=== PATIENT | male | born 1980 ===

== ENCOUNTER 2016-07-24 13:41 | Emergency (ER) | payer OTHER ==
--- NOTE | 2016-07-24 16:49 | ED ---
Lower Extremity - HPI Summary HPI Summary: Patient sent here by [facility] after kicked in the right luna by a cow last week. He was not seen at the time because he denied severe pain. He assumed it would just be a bruise. Over this week, the swelling increased and there is noticeable blood pooling under the skin on both medial and lateral right ankle. He denies calf pain. He takes no medications. He is otherwise healthy. He has been walking and working on the leg, but notes to increasing pain, color changes. Denies temperature changes, numbness or tingling. Pulses +2 bilaterally. - History of Current Complaint Chief Complaint: EDExtremityLower Stated Complaint: RT LEG INJURY Time Seen by Provider: 07/24/16 15:34 Hx Obtained From: Patient Mechanism Of Injury: Direct Blow Onset of Pain: Immediate Onset/Duration: Days Severity Initially: Mild Severity Currently: Moderate Pain Intensity: 5 Pain Scale Used: 0-10 Numeric Timing: Constant Location: Is Discrete @ - right lower extremity BTK Character Of Pain: Aching, Throbbing Associated Signs And Symptoms: Positive: Swelling, Redness, Bruising Aggravating Factor(s): Standing, Ambulation, Movement, Weight Bearing, Stairs Alleviating Factor(s): Rest Able to Bear Weight: Yes Related History: Occupational Injury - Risk Factors Gout Risk Factors: Negative, Male DVT Risk Factors: Negative Septic Arthritis Risk Factor: Negative - Allergies/Home Medications Allergies/Adverse Reactions: Allergies Allergy/AdvReac Type Severity Reaction Status Date / Time No Known Allergies Allergy Verified 07/24/16 16:28 PMH/Surg Hx/FS Hx/Imm Hx Previously Healthy: Yes - Immunization History Hx Pertussis Vaccination: No Immunizations Up to Date: No Infectious Disease History: No Infectious Disease History: Denies: Traveled Outside the [place] in Last 30 Days - Social History Occupation: Employed Full-time Lives: With Family Alcohol Use: Occasionally Hx Substance Use: No Substance Use Type: Reports: None Hx Tobacco Use: No Smoking Status (MU): Never Smoked Tobacco Do You Chew or Dip Tobacco: No Review of Systems Constitutional: Negative Eyes: Negative Cardiovascular: Negative Respiratory: Negative Positive: no symptoms reported, see HPI Positive: Arthralgia - medial and lateral ankle pain on palpation, Myalgia Positive: Bruising - hematoma inferior to the right knee anteriorly Neurological: Negative Psychological: Normal All Other Systems Reviewed And Are Negative: Yes Physical Exam Triage Information Reviewed: Yes Vital Signs On Initial Exam: Initial Vitals Temp Pulse Resp BP Pulse Ox 97.7 F 67 18 128/82 97 07/24/16 13:44 07/24/16 13:44 07/24/16 13:44 07/24/16 13:44 07/24/16 13:44 Vital Signs Reviewed: Yes Appearance: Positive: Well-Appearing, Well-Nourished Skin: Positive: Warm, Skin Color Reflects Adequate Perfusion, Other - ecchymosis surrounding lower extremity and medial and lateral ankle of right side. Hematoma located inferior to the right knee Head/Face: Positive: Normal Head/Face Inspection Eyes: Positive: JERZY, Conjunctiva Clear Neck: Positive: Supple, No Lymphadenopathy Respiratory/Lung Sounds: Positive: Clear to Auscultation, Breath Sounds Present Cardiovascular: Positive: Normal, RRR, Pulses are Symmetrical in both Upper and Lower Extremities Musculoskeletal: Positive: Strength/ROM Intact, Pain @ - right BTK pain diffuse throughout, no pain over calf Neurological: Positive: Sensory/Motor Intact, Alert, Oriented to Person Place, Time, Speech Normal Psychiatric: Positive: Normal AVPU Assessment: Alert Diagnostics - Vital Signs Vital Signs Temp Pulse Resp BP Pulse Ox 07/24/16 16:16 98.2 F 56 16 115/72 98 07/24/16 14:37 98.3 F 60 16 112/74 98 07/24/16 13:44 97.7 F 67 18 128/82 97 - Laboratory Lab Statement: Any lab studies that have been ordered have been reviewed, and results considered in the medical decision making process. Lower Extremity Course/Dx - Course Course Of Treatment: Patient sent here by [facility]. CT lower extremity shows subcutaneous hematoma over anterior luna of right leg. NO DVT visualized. Patient encouraged elevation, moist heat to the area to promote blood flow, ibuprofen 600mg three times daily and follow up with PCP in 1 week to assure the hematoma is decreasing in size. - Diagnoses Differential Diagnosis/HQI/PQRI: Positive: Contusion, DVT, Fracture (Closed), Strain, Other - hematoma Provider Diagnoses: Subcutaneous hematoma Discharge - Discharge Plan Condition: Stable Disposition: HOME Patient Education Materials: Hematoma (ED) Referrals: No Primary Care Phys,NOPCP [Primary Care Provider] - Additional Instructions: Warm baths with epsom salt Elevate leg at night with moist heat over top the wound Ibuprofen 600mg three times daily with meals If you develop loss of feeling, temperature changes or worsening color changes in the foot, come back to ED right away. Follow up with PCP in about 1 week to assure the hematoma is decreasing in size.
--- NOTE | 2016-07-24 16:58 | RAD ---
INDICATION: Right luna hematoma one week after being kicked by a cow COMPARISON: None. TECHNIQUE: Noncontrast CT examination of the right lower leg. Axial images were acquired and sagittal and coronal reformats were created and independently analyzed. FINDINGS: Axial imaging best reveals a hyperattenuating subcutaneous fluid collection measuring 2.4 x 3.7 cm (image 54 of 190) that measures approximately 5.2 cm in the cephalocaudal projection (sagittal image 85). The underlying tibia is intact. Remaining visualized bones of the right knee and right lower leg are intact. There is no evidence of fluid collection in the deeper compartments of the right lower leg. IMPRESSION: CT findings are most consistent with a subcutaneous hematoma overlying the superior medial right tibia as described above.
[2016-07-24 18:35] VITALS: BP 123/68
== END 2016-07-24 18:34 | disposition home or self-care (01) ==
LOC: ED 13:41
DX: S80.11XA Contusion of right lower leg, initial encounter (principal); W55.22XA Struck by cow, initial encounter; Y92.9 Unspecified place or not applicable; M79.661 Pain in right lower leg
CPT/HCPCS: 99281